=== PATIENT | female | born 1990 | race Caucasian/White ===

== ENCOUNTER 2019-06-01 21:51 | Emergency (ER) | payer SELFPAY ==
[~2019-06-01] VITALS: Ht 175.3 cm; Wt 81.8 kg
[2019-06-01 21:57] VITALS: Ht 175.3 cm; Wt 81.8 kg
[2019-06-01] MEDS ORDERED: ADDERALL (22:00)
[2019-06-01] MEDS ORDERED: LEXAPRO (22:00)
[2019-06-01 23:03] LABS: BASOPHILS 0.2 % (0-2); EOSINOPHILS 1.7 % (0-7); HEMATOCRIT 41.5 % (36.0-48.0); HEMOGLOBIN 14.8 g/dL (12-16); IMMATURE GRANULOCYTES 0.2 % (0-5); LYMPHOCYTES 46.3 % (15-50); MCH 32.2 pg (26.0-34.0); MCHC 35.7 g/dL (31.0-37.0); MCV 90.2 fL (80.0-100.0); MEAN PLATELET VOLUME 9.5 fL (7.4-10.4); MONOCYTES 6.7 % (2-11); NEUTROPHILS 44.9 % (40-80); PLATELET COUNT 383 10x3/uL (130-400); RDW 12.6 % (11.5-14.5); WBC 10.5 10x3/uL (4.8-10.8)
[2019-06-01 23:46] LABS: HCG SERUM NEGATIVE (NEGATIVE)
[2019-06-01 23:47] LABS: APPEARANCE HAZY (CLEAR); BILIRUBIN NEGATIVE (NEGATIVE); COLOR YELLOW (YELLOW); EPITHELIAL CELLS 0-5 /hpf (0-5); GLUCOSE NEGATIVE (NEGATIVE); KETONE NEGATIVE (NEGATIVE); NITRITE NEGATIVE (NEGATIVE); PROTEIN NEGATIVE (NEGATIVE); RED CELLS - URINE NONE SEEN /hpf (0-5); UROBILINOGEN NORMAL (NORMAL); WHITE CELLS - URINE 0-5 /hpf (0-5)
[2019-06-01 23:51] LABS: ALBUMIN 3.8 g/dL (3.4-5.0); ALKALINE PHOSPHATASE 66 U/L (46-116); BILIRUBIN - TOTAL 0.38 mg/dL (0.2-1.3); CALC OSMOLALITY 282 mosm/kg (275-300); CALCIUM 8.6 mg/dL (8.5-10.1); CARBON DIOXIDE 22.3 mmol/L (21.0-32.0); CHLORIDE - SERUM 107 mmol/L (98-107); CREATININE - SERUM 0.8 mg/dL (0.6-1.3); GLUCOSE 94 mg/dL (74-106); POTASSIUM - SERUM 4.1 mmol/L (3.5-5.1); PROTEIN - SERUM 7.4 g/dL (6.4-8.2); SODIUM 142 mmol/L (136-145); UREA NITROGEN 12 mg/dL (7-18); eGFR NON AFRICAN AMERICAN > 90 mL/min (90-120)
[2019-06-01 23:53] LABS: UDS - AMPHET POSITIVE QUAL (NEGATIVE); UDS - BARB NEGATIVE QUAL (NEGATIVE); UDS - BENZO NEGATIVE QUAL (NEGATIVE); UDS - COCAINE NEGATIVE QUAL (NEGATIVE); UDS - OPIATE NEGATIVE QUAL (NEGATIVE); UDS - PCP NEGATIVE QUAL (NEGATIVE); UDS - THC POSITIVE QUAL (NEGATIVE)
[2019-06-01 23:53] LABS: ALT (SGPT) 25 U/L (10-68)
[2019-06-02] MEDS ORDERED: KLONOPIN1 MG PO (00:58)
[2019-06-02] MEDS ORDERED: ROBAXIN500 MG PO (00:58)
[2019-06-02] MEDS ORDERED: TORADOL10 MG PO (00:58)
[2019-06-02 01:15] VITALS: BP 100/48
== END 2019-06-02 01:15 | disposition home or self-care (01) ==
LOC: D.ER 21:51
PROVIDERS: Emergency Medicine
DX: S40.011A Contusion of right shoulder, initial encounter (principal); V49.9XXA Car occupant (driver) (passenger) injured in unspecified traffic accident, initial encounter; Y93.89 Activity, other specified; Y92.410 Unspecified street and highway as the place of occurrence of the external cause; F10.129 Alcohol abuse with intoxication, unspecified; S20.211A Contusion of right front wall of thorax, initial encounter; S60.221A Contusion of right hand, initial encounter; F15.10 Other stimulant abuse, uncomplicated; F12.10 Cannabis abuse, uncomplicated; S63.501A Unspecified sprain of right wrist, initial encounter

== ENCOUNTER 2019-11-08 08:18 | Observation (INO) | payer MEDICAID ==
[~2019-11-08] VITALS: Ht 175.3 cm; Wt 89.0 kg
[~2019-11-08 08:18] MED LIST: ADDERALL; KLONOPIN1 MG PO; LEXAPRO; ROBAXIN500 MG PO; TORADOL10 MG PO
[2019-11-08 08:37] LABS: BASOPHILS 0.1 % (0-2); EOSINOPHILS 0.8 % (0-7); HEMATOCRIT 43.6 % (36.0-48.0); HEMOGLOBIN 14.8 g/dL (12-16); IMMATURE GRANULOCYTES 0.8 % (0-5); LYMPHOCYTES 12.9 % (15-50); MCH 31.2 pg (26.0-34.0); MCHC 33.9 g/dL (31.0-37.0); MONOCYTES 6.7 % (2-11); NEUTROPHILS 78.7 % (40-80); PLATELET COUNT 332 10x3/uL (130-400); RBC 4.74 10x6/uL (4.00-5.40); RDW 12.5 % (11.5-14.5); WBC 13.2 10x3/uL (4.8-10.8)
[2019-11-08 08:54] LABS: CALC OSMOLALITY 278 mosm/kg (275-300); CARBON DIOXIDE 21.5 mmol/L (21.0-32.0); CHLORIDE - SERUM 103 mmol/L (98-107); CREATININE - SERUM 0.9 mg/dL (0.6-1.3); GLUCOSE 108 mg/dL (74-106); SODIUM 139 mmol/L (136-145); UREA NITROGEN 13 mg/dL (7-18); eGFR NON AFRICAN AMERICAN 80 mL/min (90-120)
[2019-11-08 08:58] LABS: HCG SERUM NEGATIVE (NEGATIVE)
[2019-11-08 09:01] LABS: ALBUMIN 3.9 g/dL (3.4-5.0); ALKALINE PHOSPHATASE 78 U/L (46-116); ALT (SGPT) 47 U/L (10-68); AMYLASE - SERUM 28 U/L (25-115); BILIRUBIN - TOTAL 0.35 mg/dL (0.2-1.3); LIPASE 112 U/L (73-393)
[2019-11-08 13:41] VITALS: BP 132/72; BMI 17.0
[2019-11-08 13:43] VITALS: BP 112/70
[2019-11-08 16:00] VITALS: BP 115/68; BP 141/84
--- NOTE | 2019-11-08 19:25 | NUR ---
PT SITTING UP IN BED WITHOUT DISTRESS, AOX4. TOLERATED CLEAR LIQUID DINNER AND REQUESTING MORE FOOD. TOLD PT SHE WAS STILL ON CLEAR LIQUID. REQUESTED AND GIVEN CHICKEN BROTH AND JELLO. PT TOLERATED BOTH AND REQUESTED MORE. EDUCATED PT ON TAKING DIET SLOW TO NOT MAKE HERSELF NAUSEOUS, VERBALIZED UNDERSTANDING. IV RIGHT AC INFUSING NS @ 100. TOLD PT WE NEEDED UA, AGREED TO GIVE SAMPLE NEXT VOID. FLU SWAB COLLECTED AT THIS TIME. BOWEL SOUNDS ACTIVE, LUNGS CTA. DENIES PAIN OR NEEDS. CL IN REACH, WILL CTM
[2019-11-08 19:39] VITALS: BP 124/69
[2019-11-08 21:37] LABS: APPEARANCE CLEAR (CLEAR); COLOR YELLOW (YELLOW); GLUCOSE NEGATIVE (NEGATIVE); KETONE NEGATIVE (NEGATIVE); NITRITE NEGATIVE (NEGATIVE); PROTEIN NEGATIVE (NEGATIVE)
[2019-11-08 21:38] LABS: BILIRUBIN NEGATIVE (NEGATIVE); UROBILINOGEN NORMAL (NORMAL)
[2019-11-08 21:54] LABS: UDS - AMPHET NEGATIVE QUAL (NEGATIVE); UDS - BARB POSITIVE QUAL (NEGATIVE); UDS - BENZO NEGATIVE QUAL (NEGATIVE); UDS - COCAINE NEGATIVE QUAL (NEGATIVE); UDS - OPIATE NEGATIVE QUAL (NEGATIVE); UDS - PCP NEGATIVE QUAL (NEGATIVE); UDS - THC POSITIVE QUAL (NEGATIVE)
[2019-11-09 00:10] VITALS: BP 118/76
--- NOTE | 2019-11-09 01:51 | NUR ---
LYING IN BED SLEEPING, NO NEEDS AT THIS TIME. WILL CTM
[2019-11-09 04:23] VITALS: BP 97/47
--- NOTE | 2019-11-09 05:39 | NUR ---
PT HAS TOLERATED CLEAR LIQUIDS THROUGH THE NIGHT. SHE HAS HAD 4 CUPS CHICKEN BROTH, TWO LEMON KEWEENAW SODAS, TWO JELLOS, CUP OF ICE, AND CUP OF WATER.
[2019-11-09 07:06] LABS: CALC OSMOLALITY 278 mosm/kg (275-300); CALCIUM 7.8 mg/dL (8.5-10.1); CARBON DIOXIDE 22.8 mmol/L (21.0-32.0); CHLORIDE - SERUM 109 mmol/L (98-107); CREATININE - SERUM 0.8 mg/dL (0.6-1.3); GLUCOSE 95 mg/dL (74-106); PHOSPHOROUS 3.1 mg/dL (2.5-4.9); POTASSIUM - SERUM 3.7 mmol/L (3.5-5.1); SODIUM 141 mmol/L (136-145); UREA NITROGEN 6 mg/dL (7-18); eGFR NON AFRICAN AMERICAN > 90 mL/min (90-120)
[2019-11-09 07:44] VITALS: BP 111/68
[2019-11-09 07:47] LABS: BASOPHILS 0.2 % (0-2); EOSINOPHILS 3.8 % (0-7); HEMATOCRIT 38.3 % (36.0-48.0); HEMOGLOBIN 12.4 g/dL (12-16); IMMATURE GRANULOCYTES 0.8 % (0-5); MCH 30.4 pg (26.0-34.0); MCHC 32.4 g/dL (31.0-37.0); MCV 93.9 fL (80.0-100.0); MEAN PLATELET VOLUME 9.2 fL (7.4-10.4); MONOCYTES 12.9 % (2-11); NEUTROPHILS 42.3 % (40-80); PLATELET COUNT 265 10x3/uL (130-400); RBC 4.08 10x6/uL (4.00-5.40); RDW 12.5 % (11.5-14.5); WBC 6.1 10x3/uL (4.8-10.8)
[2019-11-09 09:22] VITALS: Ht 175.3 cm; Wt 89.0 kg
--- NOTE | 2019-11-09 19:45 | NUR ---
PATIENT ALERT AND ORIENTED. NO SIGNS OF ACUT STRESS NOTED. SITTING UP IN BED, REQUESTS SANDWICH. IV TO R AC, NS @100. NO FURTHER NEEDS AT THIS TIME. BED RAILS X2. BEDSIDE TABLE AND CALL LIGHT WITHIN REACH.
[2019-11-09 19:58] VITALS: BP 119/65
[2019-11-10 00:51] VITALS: BP 135/49
[2019-11-10 03:58] VITALS: BP 87/37
[2019-11-10 04:11] VITALS: BP 92/56
[2019-11-10 06:04] LABS: BASOPHILS 0.1 % (0-2); HEMATOCRIT 40.1 % (36.0-48.0); HEMOGLOBIN 13.1 g/dL (12-16); IMMATURE GRANULOCYTES 0.7 % (0-5); LYMPHOCYTES 23.5 % (15-50); MCH 30.3 pg (26.0-34.0); MCHC 32.7 g/dL (31.0-37.0); MCV 92.6 fL (80.0-100.0); MEAN PLATELET VOLUME 9.2 fL (7.4-10.4); MONOCYTES 8.4 % (2-11); NEUTROPHILS 65.3 % (40-80); PLATELET COUNT 271 10x3/uL (130-400); RBC 4.33 10x6/uL (4.00-5.40); RDW 12.3 % (11.5-14.5)
[2019-11-10 06:14] LABS: CALC OSMOLALITY 283 mosm/kg (275-300); CALCIUM 8.3 mg/dL (8.5-10.1); CARBON DIOXIDE 25.1 mmol/L (21.0-32.0); CHLORIDE - SERUM 108 mmol/L (98-107); CREATININE - SERUM 0.7 mg/dL (0.6-1.3); GLUCOSE 93 mg/dL (74-106); POTASSIUM - SERUM 3.8 mmol/L (3.5-5.1); SODIUM 143 mmol/L (136-145); eGFR NON AFRICAN AMERICAN > 90 mL/min (90-120)
[2019-11-10 06:20] LABS: UREA NITROGEN 9 mg/dL (7-18)
[2019-11-10 06:44] LABS: WBC 10.1 10x3/uL (4.8-10.8)
[2019-11-10 07:50] VITALS: BP 138/71
--- NOTE | 2019-11-10 08:18 | NUR ---
PT SITTING UP IN BED. ASSESSMENT COMPLETE. PT DENIES PAIN OR NEEDS AT THIS TIME. RR EVEN AND UNLABORED ON ROOM AIR. CALL LIGHT WITHIN REACH. BED IN LOWEST POSITION. WILL CONTINUE TO MONITOR.
--- NOTE | 2019-11-10 09:34 | NUR ---
I have reviewed this patient and I concur with the Shift Assessment completed by the Licensed Practical Nurse today this shift.
[2019-11-10] MEDS ORDERED: ZOFRAN ODT4 MG/UDTAB PO (11:08)
[2019-11-10] MEDS ORDERED: FLAGYL500 MG PO (11:08)
--- NOTE | 2019-11-10 12:30 | NUR ---
D/C INSTRUCTIONS REVIEWED WITH PT. VERBALIZED UNDERSTANDING AND NO FURTHER QUESTIONS AT THIS TIME. IV S/C WITH CATHETER TIP INTACT. PT DENIED WHEELCHAIR. AMBULATED OUT OF ROOM WITH STEADY GAIT TO PERSONAL VEHICLE WITH ALL BELONGINGS.
== END 2019-11-10 12:31 | disposition home or self-care (01) ==
LOC: D.ER 08:18 → OBSVTIME 10:49 → D.M3 10:49 → D.ER 11:02 → D.M3 11-10 12:31
PROVIDERS: Family Medicine; ADMIT Internal Medicine Nephrology; ATTEND Internal Medicine Nephrology
DX: K52.9 Noninfective gastroenteritis and colitis, unspecified (principal); N17.9 Acute kidney failure, unspecified; F90.9 Attention-deficit hyperactivity disorder, unspecified type; F17.203 Nicotine dependence unspecified, with withdrawal; F32.9 Major depressive disorder, single episode, unspecified

== ENCOUNTER 2020-04-23 15:32 | Emergency (ER) | payer OTHER ==
[~2020-04-23] VITALS: Ht 175.3 cm; Wt 81.8 kg
[~2020-04-23 15:32] MED LIST changes: +FLAGYL500 MG PO; +VOLTAREN75 MG PO; +ZOFRAN ODT4 MG/UDTAB PO
[2020-04-23 15:37] VITALS: BP 124/99; Ht 175.3 cm; Wt 81.8 kg
[2020-04-23 15:56] LABS: BASOPHILS 0.1 % (0-2); EOSINOPHILS 0.4 % (0-7); HEMATOCRIT 41.7 % (36.0-48.0); HEMOGLOBIN 13.8 g/dL (12-16); IMMATURE GRANULOCYTES 0.7 % (0-5); LYMPHOCYTES 16.7 % (15-50); MCH 31.5 pg (26.0-34.0); MCHC 33.1 g/dL (31.0-37.0); MCV 95.2 fL (80.0-100.0); MEAN PLATELET VOLUME 8.9 fL (7.4-10.4); NEUTROPHILS 73.1 % (40-80); PLATELET COUNT 317 10x3/uL (130-400); RBC 4.38 10x6/uL (4.00-5.40); RDW 11.9 % (11.5-14.5); WBC 12.4 10x3/uL (4.8-10.8)
[2020-04-23 16:05] LABS: CALC OSMOLALITY 268 mosm/kg (275-300); CARBON DIOXIDE 26.1 mmol/L (21.0-32.0); CHLORIDE - SERUM 101 mmol/L (98-107); CREATININE - SERUM 0.9 mg/dL (0.6-1.3); GLUCOSE 102 mg/dL (74-106); POTASSIUM - SERUM 3.8 mmol/L (3.5-5.1); SODIUM 135 mmol/L (136-145); UREA NITROGEN 11 mg/dL (7-18); eGFR NON AFRICAN AMERICAN 80 mL/min (90-120)
[2020-04-23 16:15] LABS: ALBUMIN 3.7 g/dL (3.4-5.0); ALKALINE PHOSPHATASE 62 U/L (30-120); ALT (SGPT) 22 U/L (10-68); AMYLASE - SERUM 27 U/L (25-115); BILIRUBIN - TOTAL 0.44 mg/dL (0.2-1.3); LIPASE 105 U/L (73-393); PROTEIN - SERUM 7.5 g/dL (6.4-8.2)
[2020-04-23 16:16] LABS: TROPONIN-I < 0.017 ng/mL (0.000-0.060)
[2020-04-23 16:29] LABS: BILIRUBIN NEGATIVE (NEGATIVE); GLUCOSE NEGATIVE (NEGATIVE); KETONE NEGATIVE (NEGATIVE); NITRITE POSITIVE (NEGATIVE); UROBILINOGEN NORMAL (NORMAL)
[2020-04-23 16:30] LABS: BACTERIA MANY /hpf (NEGATIVE); RED CELLS - URINE 0-5 /hpf (0-5)
[2020-04-23 16:33] LABS: HCG URINE NEGATIVE (NEGATIVE)
[2020-04-23] MEDS ORDERED: FLOMAX0.4 MG PO (17:14)
[2020-04-23] MEDS ORDERED: ZOFRAN ODT4 MG/UDTAB PO (17:14)
[2020-04-23] MEDS ORDERED: KEFLEX500 MG PO (17:14)
[2020-04-23] MEDS ORDERED: MOBIC7.5 MG PO (17:14)
[2020-04-23] MEDS ORDERED: HYDROCODON-ACE1 EAC2 PO (17:14)
== END 2020-04-23 17:57 | disposition home or self-care (01) ==
LOC: D.ER 15:32
PROVIDERS: Family Medicine
DX: R10.31 Right lower quadrant pain (principal); D72.829 Elevated white blood cell count, unspecified; N39.0 Urinary tract infection, site not specified

== ENCOUNTER 2020-06-11 14:48 | Emergency (ER) | payer OTHER ==
[~2020-06-11] VITALS: Ht 175.3 cm; Wt 86.4 kg
[~2020-06-11 14:48] MED LIST changes: +FLOMAX0.4 MG PO; +HYDROCODON-ACE1 EAC2 PO; +KEFLEX500 MG PO; +MOBIC7.5 MG PO
[2020-06-11 14:54] VITALS: Ht 175.3 cm; Wt 86.4 kg
[2020-06-11 15:30] LABS: BASOPHILS 0.3 % (0-2); HEMATOCRIT 39.1 % (36.0-48.0); HEMOGLOBIN 12.8 g/dL (12-16); IMMATURE GRANULOCYTES 0.5 % (0-5); LYMPHOCYTES 26.1 % (15-50); MCH 30.5 pg (26.0-34.0); MCHC 32.7 g/dL (31.0-37.0); MCV 93.3 fL (80.0-100.0); MONOCYTES 8.7 % (2-11); NEUTROPHILS 63.4 % (40-80); RBC 4.19 10x6/uL (4.00-5.40); RDW 13.1 % (11.5-14.5); WBC 7.7 10x3/uL (4.8-10.8)
[2020-06-11 15:33] LABS: PLATELET COUNT 249 10x3/uL (130-400)
[2020-06-11 15:37] LABS: ANION GAP 8.6 mmol/L (8-16); CALCIUM 9.4 mg/dL (8.5-10.1); CARBON DIOXIDE 28.8 mmol/L (21.0-32.0); POTASSIUM - SERUM 4.4 mmol/L (3.5-5.1)
[2020-06-11 15:43] LABS: ALBUMIN 3.6 g/dL (3.4-5.0); BILIRUBIN - TOTAL 0.39 mg/dL (0.2-1.3); PROTEIN - SERUM 7.1 g/dL (6.4-8.2)
[2020-06-11 16:06] LABS: BILIRUBIN NEGATIVE (NEGATIVE); GLUCOSE NEGATIVE (NEGATIVE); KETONE NEGATIVE (NEGATIVE); NITRITE NEGATIVE (NEGATIVE); UROBILINOGEN NORMAL (NORMAL)
[2020-06-11 16:09] LABS: WHITE CELLS - URINE 25-50 /hpf (NEGATIVE)
[2020-06-11 16:10] LABS: BACTERIA FEW /hpf (NEGATIVE); EPITHELIAL CELLS 0-5 /hpf (0-5); RED CELLS - URINE 25-50 /hpf (0-5)
[2020-06-11 16:19] LABS: HCG URINE NEGATIVE (NEGATIVE)
[2020-06-11] MEDS ORDERED: HYDROCODON-ACE1 EA10 PO (17:08)
[2020-06-11] MEDS ORDERED: FLOMAX0.4 MG PO (17:08)
[2020-06-11 17:15] VITALS: BP 132/86
== END 2020-06-11 17:16 | disposition home or self-care (01) ==
LOC: D.ER 14:48
PROVIDERS: Family Medicine
DX: N20.0 Calculus of kidney (principal); N39.0 Urinary tract infection, site not specified; R10.32 Left lower quadrant pain